=== PATIENT | female | born 1945 | race Caucasian/White ===

== ENCOUNTER 2016-12-27 16:38 | Emergency (ER) | payer MEDICARE, OTHER ==
[~2016-12-27] VITALS: Ht 162.6 cm; Wt 95.8 kg
[~2016-12-27 16:38] MED LIST: ACET-2723 PO; ALLO300T2 PO; ASCO-324 PO; ASPI-557 PO; ASPI-935 PO; FERR325T40 PO; FURO-154 PO; LIDO30CR23 TP; MULT-1114 PO; NITR0.4T SL; PETR3.5O BOTH EYES; POTA10TA10 PO; PRAV40TA3 PO; TRAM50TA4 PO; VERA120C2 PO
[2016-12-27 16:43] VITALS: Ht 162.6 cm; Wt 95.8 kg
--- OUTSIDE RECORDS SUMMARY | 2016-12-27 16:44 | XMS REPORT | Continuity of Care Document ---
Author Author [facility] Organization [facility] Address Unknown Phone Unavailable Support Name Relationship Address Phone QUINN WOODS II, MD Caregiver [address] [place] [address] [address] [place] [phone] Unavailable GARY WU MD Caregiver [address] [place] [address] [place] [address] Unavailable GLORY GOVEA Next Of Kin [address] [place] [address] Insurance Providers Guarantor Vivi Sorensen Address [address] [place] [address] Email [email or web address] Payer [facility] Policy Number [id number] Subscriber's Name SorensenVivi Relationship 18 Self Group Number [id number] Effective Date 13 Payer Medicare Policy Number [id number] Subscriber's Name Sorensen,Vivi Medina Relationship 18 Self Effective Date 11 Advance Directives Directive Response Recorded Date/Time Ordered Resuscitation Status Full Code 09/21/16 9:19am Resuscitation Documents on File No 09/22/16 6:38am DPOA for Healthcare Only No 09/22/16 6:38am Living Will No 09/22/16 6:38am Problems No problem information available. Medications Current Home Medications Medication Dose Units Route Directions Days Qty Instructions Start Date Acetaminophen (Tylenol Extra Strength) 500 Mg Tablet 1-2 Tab Oral Every 6 Hours as needed for Pain 05/20/15 Allopurinol 300 Mg Tablet 1 Tab Oral Daily 09/10/14 Ascorbate Calcium (Vitamin C) 500 Mg Tablet 1 Tab Oral Daily Aspirin (Aspir 81) 81 Mg Tablet. 1 Tab Oral Daily 09/10/14 Aspirin/Caffeine (Tez Back & Body Caplet) 1 Each Tablet 1 Tab Oral Daily as needed for Pain 09/21/16 Ferrous Sulfate (Iron) 325 Mg Tablet 1 Tab Oral 3 Times A Week BEST WITH FOOD. 09/21/16 Furosemide (Lasix) 20 Mg Tablet 1 Tab Oral 3 Times A Week 09/30/ 15 Lidocaine/Prilocaine (Lidocaine-Prilocaine Cream) 30 Gm Cream..g. 1 Applic Topical As Needed as needed for Pain 09/21/16 Mineral Oil/Petrolatum,White (Refresh P.m. Ointment) 3.5 Gm Oint...g. 1 Unit Ophthalmic Bedtime 05/20/15 Multivitamin (Daily Value) 1 Each Tablet 1 Tab Oral Daily Nitroglycerin (Nitrostat) 0.4 Mg Tablet 0.4 Mg Sublingual for Chest Pain 10/27/14 Potassium Chloride (Klor-Con 10) 10 Meq Tablet.er 1 Tab Oral Daily 05/20/15 Pravastatin Sodium 40 Mg Tablet 40 Mg Oral Bedtime Take 1 tablet, by mouth, daily at bedtime. 09/10/14 Tramadol Hcl 50 Mg Tablet 50 Mg Oral Q6h/0300,0900,1500,2100 as needed for Pain Take 1 tablet, by mouth, every 6 hours. 09/21/16 Verapamil Hcl (Verapamil Er) 120 Mg Cap24h.pel 1 Tab Oral Daily 30 10/27/14 Past Home Medications Medication Directions Ordered Status Benazepril/Hydrochlorothiazide (Benazepril-Hctz 20-12.5 Mg Tab) 1 Each Tablet, 1 Tab Oral Daily 09/10/14 Discontinued Social History Social History Problem Response Recorded Date/Time Onset Date Status Reason for Hospitalization COLONSCOPY 09/22/2016 8:36am Not Applicable Not Applicable Chewing Tobacco Status No 09/22/2016 6:35am Not Applicable Not Applicable Hx Substance Use No 09/22/2016 6:35am Not Applicable Not Applicable Hx Alcohol Use No 09/22/2016 6:35am Not Applicable Not Applicable Has the pt used tobacco in the last 12 months No 09/22/2016 6:35am Not Applicable Not Applicable Query Response Start Date Stop Date Smoking Status Former smoker Hospital Discharge Instructions Instructions: Care Instructions: I was in the hospital because (patient own words): COLONOSCOPY Discharge Diet: You may resume your usual diet. Discharge Activity: You may resume your usual activity. Follow Up Appointments: No specific follow-up appointment with Dr. Wu is necessary. You can call his office for any questions or concerns. Pending Lab / Results: Will be notified Patient Instructions: Do not drive, operate machinery, drink alcohol, or sign important papers for 24 hours. Expected Signs/Symptoms: You may have some gas discomfort. Notify Physician If: Contact Dr. Wu if you have a fever over 101 degrees, severe abdominal pain, or severe rectal bleeding. During Business Hours:: During office hours, call Dr. Wu's office at [phone]. After Business Hours:: After hours, please call [facility] at [phone] and have the door operator page Dr. Wu or the covering physician. Pain Management/Treatment: You should not have significant pain following the procedure. Wound/Incision Care: No wound care required. Condition at time of discharge: Good Plan of Care Discharge Date 09/22/16 8:56am Instructions/Education Provided [facility] Surgical Services Prescriptions See Medication Section Functional Status Query Response Date Recorded Ability to complete ADL's impeded by No change September 22, 2016 6:38am Allergies, Adverse Reactions, Alerts Allergen Type Severity Reaction Status Last Updated NKDA Allergy Unknown Active 09/22/16 Immunizations Query Response on File Recorded Date/Time Hx Influenza Vaccination Y 201509/22/16 6:35am Hx Pneumococcal Vaccination Y fall 201409/22/16 6:35am Hx Influenza Vaccination Y 201509/22/16 6:35am Vital Signs Acute Vital Signs Vital Response Date/Time Temperature (Fahrenheit) 97.3 deg F (96.8 - 99.1) 09/22/2016 8:17am Temperature (Calculated Celsius) 36.07276 degrees C (36.0 - 37.3) 09/22/2016 8:17am Temperature Source Oral 09/22/2016 8:17am Pulse Rate (adult) 68 bpm (60 - 100) 09/22/2016 8:47am Respiratory Rate 16 breaths/min (10 - 20) 09/22/2016 8:47am O2 Sat by Pulse Oximetry 92 % (90 - 100) 09/22/2016 8:47am Oxygen Delivery Method Room Air 09/22/2016 8:47am Blood Pressure 108/58 mm Hg 09/22/2016 8:47am Blood Pressure Source Automatic Cuff 09/22/2016 8:47am Height (Feet) 5 feet 09/22/2016 6:12am Height (Inches) 3.00 inches 09/22/2016 6:12am Weight (Kilograms) 94.300 kg 09/22/2016 6:12am Body Mass Index (BMI) 36.8 09/22/2016 6:12am Results No known relevant diagnostic tests, laboratory data and/or discharge summary. Procedures Procedure Status Date Provider(s) Colonoscopy with polypectomy and biopsy Completed 09/22/16 GARY WU MD Encounters Encounter Location Arrival/Admit Date Discharge/Depart Date Attending Provider Departed Surgical [facility] 09/22/16 5:54am 09/22/16 8: 56am GARY WU MD
--- OUTSIDE RECORDS SUMMARY | 2016-12-27 16:44 | XMS REPORT | Continuity of Care Document ---
Author Author [facility] Organization [facility] Address Unknown Phone Unavailable Support Name Relationship Address Phone QUINN WOODS II, MD Caregiver [address] [place] [address] [address] [place] [phone] GARY WU MD Caregiver [address] [place] [address] [place] [phone] VIKASH FAYN Next Of Kin Unknown [phone] Insurance Providers Payer Name Policy Number Subscriber Name Relationship Medicare [id number] Vivi Sorensen 18 Self Other A Insurance [id number] Vivi Sorensen 18 Self Advance Directives Directive Response Recorded Date/Time Ordered Resuscitation Status Full Code 09/10/14 10:36am Resuscitation Documents on File No 09/10/14 9:54am Problems No known problems or medical conditions. Medications Medication Dose Route Sig Days/Qty Instructions Order Date Discontinued Date Status Aspirin 1 Tab PO DAILY 09/10/14 Active Multivitamin 1 Tab PO DAILY 09/10/14 Active [place]-3 Fatty Acids/Fish Oil 2,000 Mg PO DAILY 09/10/14 Active Nystatin/Triamcin 2 Dose TOP NEEDED 09/10/14 Active Naproxen 1 Tab PO TWICE A DAY 09/10/14 Active Allopurinol 1 Tab PO DAILY 09/10/14 Active [Eye Vitamin] 1 Tab PO DAILY 09/10/14 Active Benazepril/Hydrochlorothiazide 1 Tab PO DAILY 09/10/14 Active Pravastatin Sodium 40 Mg PO BEDTIME Take 1 tablet, by mouth, daily at bedtime. 09/10/14 Active [Opti-Epa] 480 Ml PO DAILY 09/10/14 Active Social History Social History Problem Response Recorded Date/Time Chewing Tobacco Status No 09/10/2014 9:45am Hx Substance Use No 09/10/2014 9:45am Hx Alcohol Use No 09/10/2014 9:45am Has the pt used tobacco in the last 12 months No 09/11/2014 8:50am Query Response Start Date Stop Date Smoking Status Former smoker Hospital Discharge Instructions No hospital discharge instructions. Plan of Care No plan of care. Functional Status No functional status results. Allergies, Adverse Reactions, Alerts Allergen Type Severity Reaction Status Last Updated NKDA Allergy Unknown Active 09/10/14 Immunizations Name Given Type Hx Influenza Vaccination Y FALL 2013 Historical Hx Pneumococcal Vaccination Y UNSURE OF DATE Historical Hx Influenza Vaccination Y FALL 2013 Historical Vital Signs Acute Vital Signs Vital Response Date/Time Temperature (Fahrenheit) 98.2 deg F (96.8 - 99.1) Temperature (Calculated Celsius) 36.73084 degrees C (36.0 - 37.3) Temperature Source Temporal Pulse Rate (adult) 75 bpm (60 - 100) Respiratory Rate 16 breaths/min (10 - 20) O2 Sat by Pulse Oximetry 96 % (90 - 100) Oxygen Delivery Method Room Air Blood Pressure 132/63 mm Hg Blood Pressure Source Automatic Cuff Height (Feet) 5 feet Height (Inches) 4.00 inches Weight (Kilograms) 95.800 kg Body Mass Index (BMI) 36.3 Results No known relevant diagnostic tests, laboratory data and/or discharge summary. Procedures Procedure Status Date Provider(s) EGD (esophagogastroduodenoscopy) completed 09/11/14 GARY WU MD Colonoscopy completed 09/11/14 GARY WU MD
--- OUTSIDE RECORDS SUMMARY | 2016-12-27 16:44 | XMS REPORT | Continuity of Care Document ---
Author Author [facility] Organization [facility] Address Unknown Phone Unavailable Support Name Relationship Address Phone CRISTINO RAMOS MD Caregiver [address] [place] [phone] QUINN WOODS II, MD Caregiver [address] [place] [phone] MARIELA GOVEAE Next Of Kin [address] [place] [address] Insurance Providers Payer Name Policy Number Subscriber Name Relationship Medicare [id number] Vivi Sorensen 18 Self Other A Insurance [id number] Vivi Sorensen Self Advance Directives Directive Response Recorded Date/Time Ordered Resuscitation Status Full Code, unverified 10/25/14 10:09am Problems No known problems or medical conditions. Medications Medication Dose Route Sig Days/Qty Instructions Order Date Discontinued Date Status Aspirin 1 Tab PO DAILY 09/10/14 Active Multivitamin 1 Tab PO DAILY 09/10/14 Active [place]-3 Fatty Acids/Fish Oil 2,000 Mg PO DAILY 09/10/14 Active Allopurinol 1 Tab PO DAILY 09/10/14 Active [Eye Vitamin] 1 Tab PO DAILY 09/10/14 Active Benazepril/Hydrochlorothiazide 1 Tab PO DAILY 09/10/14 10/27/14 Discontinued Pravastatin Sodium 40 Mg PO BEDTIME Take 1 tablet, by mouth, daily at bedtime. 09/10/14 Active [Opti-Epa] 480 Ml PO DAILY 09/10/14 Active Omeprazole 20 Mg PO BEFORE BREAKFAST 10/27/14 Active Atenolol 1 Tab PO DAILY 10/27/14 Active Colesevelam HCl 1 Tab PO DAILY 10/27/14 Active Nitroglycerin 0.4 Mg SL For CHEST PAIN 10/27/14 Active Verapamil HCl 1 Tab PO DAILY 30 Qty 10/27/14 Active Benazepril/Hydrochlorothiazide 0.5 Tab PO DAILY 30 Days 10/27/14 Active Social History Social History Problem Response Recorded Date/Time Chewing Tobacco Status No 10/27/2014 7:38am Hx Substance Use No 10/27/2014 7:38am Hx Alcohol Use No 10/27/2014 7:38am Has the pt used tobacco in the last 12 months No 10/27/2014 7:38am Query Response Start Date Stop Date Smoking Status Former smoker Hospital Discharge Instructions No hospital discharge instructions. Plan of Care No plan of care. Functional Status No functional status results. Allergies, Adverse Reactions, Alerts Allergen Type Severity Reaction Status Last Updated NKDA Allergy Unknown Active 10/27/14 Immunizations Name Given Type Hx Influenza Vaccination Y JUN 2014 Historical Hx Pneumococcal Vaccination Y UNSURE OF DATE Historical Hx Influenza Vaccination Y JUN 2014 Historical Vital Signs Acute Vital Signs Vital Response Date/Time Temperature (Fahrenheit) 98.1 deg F (96.8 - 99.1) Temperature (Calculated Celsius) 36.86140 degrees C (36.0 - 37.3) Temperature Source Temporal Pulse Rate (adult) 63 bpm (60 - 100) Respiratory Rate 20 breaths/min (10 - 20) O2 Sat by Pulse Oximetry 98 % (90 - 100) Oxygen Delivery Method Room Air Blood Pressure 143/65 mm Hg Blood Pressure Source Automatic Cuff Height 5 ft 4 in Weight 214 lb Body Mass Index 36.0 kg/m^2 Results Test Source Date Result Interp. Ref. Range Comments Calcium Level October 27, 2014 7:38am 9.5 MG/DL N 8.4-10.2 COMMENT WILL CALL WHEN PT IS HERE Calculated Osmolality October 27, 2014 7:38am 285 MOSM/KG H 261-280 COMMENT WILL CALL WHEN PT IS HERE Glucose Level October 27, 2014 7:38am 121 MG/DL H 65-110 COMMENT WILL CALL WHEN PT IS HERE Glomerular Filtration Rate Calc October 27, 2014 7:38am 45 - COMMENT WILL CALL WHEN PT IS HERE BUN/Creatinine Ratio October 27, 2014 7:38am 17 RATIO N 6-26 COMMENT WILL CALL WHEN PT IS HERE Creatinine October 27, 2014 7:38am 1.2 MG/DL N 0.7-1.2 COMMENT WILL CALL WHEN PT IS HERE Blood Urea Nitrogen October 27, 2014 7:38am 20.0 MG/DL H 7-17 COMMENT WILL CALL WHEN PT IS HERE Anion Gap October 27, 2014 7:38am 12 MEQ/L N 5-15 COMMENT WILL CALL WHEN PT IS HERE Carbon Dioxide Level October 27, 2014 7:38am 27 MEQ/L N 22-30 COMMENT WILL CALL WHEN PT IS HERE Chloride Level October 27, 2014 7:38am 107 MEQ/L N 98-107 COMMENT WILL CALL WHEN PT IS HERE Potassium Level October 27, 2014 7:38am 4.5 MEQ/L N 3.6-5 COMMENT WILL CALL WHEN PT IS HERE Sodium Level October 27, 2014 7:38am 146 MEQ/L H 134-144 COMMENT WILL CALL WHEN PT IS HERE Turbidity October 27, 2014 7:38am < 20 0-20 COMMENT WILL CALL WHEN PT IS HERE Chemistry Specimen Hemolysis October 27, 2014 7:38am < 15 0-25 0-25: No Hemolysis.26-70: Slight Hemolysis - can falsely elevate K and Urine Protein. 71-285: Moderate Hemolysis - can falsely elevate K, Troponin I, CA 19-9, PTH, CSF GLucose, and Urine Protein, and can falsely decrease Phenytoin. 286-999: Gross Hemolysis - can falsely elevate K, Troponin I, CA 19-9, PTH, CSF Glucose, and Urine Protine, and can falsely decrease Phenytoin. Recommend specimen recollection. Icterus Index October 27, 2014 7:38am < 2 0-7 COMMENT WILL CALL WHEN PT IS HERE Immature Granulocyte # (Auto) October 27, 2014 7:38am 0.01 T/MM3 N 0.00- 0.03 COMMENT WILL CALL WHEN PATIENT IS HERE Basophils # (Auto) October 27, 2014 7:38am 0.0 T/MM3 N 0-0.2 COMMENT WILL CALL WHEN PATIENT IS HERE Eosinophils # (Auto) October 27, 2014 7:38am 0.2 T/MM3 N 0-0.5 COMMENT WILL CALL WHEN PATIENT IS HERE Monocytes # (Auto) October 27, 2014 7:38am 0.6 T/MM3 N 0-0.8 COMMENT WILL CALL WHEN PATIENT IS HERE Lymphocytes # (Auto) October 27, 2014 7:38am 2.5 T/MM3 N 1-4.8 COMMENT WILL CALL WHEN PATIENT IS HERE Neutrophils # (Auto) October 27, 2014 7:38am 5.2 T/MM3 N 1.8-7.7 COMMENT WILL CALL WHEN PATIENT IS HERE Immature Granulocyte % (Auto) October 27, 2014 7:38am 0.1 % N 0.0-0.5 COMMENT WILL CALL WHEN PATIENT IS HERE Basophils (%) (Auto) October 27, 2014 7:38am 0.5 % N 0-2 COMMENT WILL CALL WHEN PATIENT IS HERE Eosinophils (%) (Auto) October 27, 2014 7:38am 2.0 % N 0-4 COMMENT WILL CALL WHEN PATIENT IS HERE Monocytes (%) (Auto) October 27, 2014 7:38am 6.9 % N 0-9.0 COMMENT WILL CALL WHEN PATIENT IS HERE Lymphocytes (%) (Auto) October 27, 2014 7:38am 29.6 % N 23-45 COMMENT WILL CALL WHEN PATIENT IS HERE Neutrophils (%) (Auto) October 27, 2014 7:38am 60.9 % N 33-66 COMMENT WILL CALL WHEN PATIENT IS HERE Mean Platelet Volume October 27, 2014 7:38am 10.6 UM3 N 9.4-12.4 COMMENT WILL CALL WHEN PATIENT IS HERE Platelet Count October 27, 2014 7:38am 170 T/MM3 N 130-400 COMMENT WILL CALL WHEN PATIENT IS HERE RDW Standard Deviation October 27, 2014 7:38am 45.9 FL N 36.9-50.2 COMMENT WILL CALL WHEN PATIENT IS HERE Mean Corpuscular Hemoglobin Concent October 27, 2014 7:38am 33.1 GM/DL N 31-37 COMMENT WILL CALL WHEN PATIENT IS HERE Mean Corpuscular Hemoglobin October 27, 2014 7:38am 30.9 UUG N 26-34 COMMENT WILL CALL WHEN PATIENT IS HERE Mean Corpuscular Volume October 27, 2014 7:38am 93.4 UM3 N 80-100 COMMENT WILL CALL WHEN PATIENT IS HERE Hematocrit October 27, 2014 7:38am 36.6 % N 36-46 COMMENT WILL CALL WHEN PATIENT IS HERE Hemoglobin October 27, 2014 7:38am 12.1 GM/DL N 12-16 COMMENT WILL CALL WHEN PATIENT IS HERE Red Blood Count October 27, 2014 7:38am 3.92 M/MM3 L 4.00-5.20 COMMENT WILL CALL WHEN PATIENT IS HERE White Blood Count October 27, 2014 7:38am 8.5 T/MM3 N 4.5-11.0 COMMENT WILL CALL WHEN PATIENT IS HERE Procedures No known history of procedures. Encounters Encounter Location Date/Time Registered [facility] 10/27/14 6:55am
--- NOTE | 2016-12-27 16:49 | NUR ---
PROVIDER Jeremias COWART BESSEMER REGULATOR IN TO SEE PATIENT.
--- OUTSIDE RECORDS SUMMARY | 2016-12-27 16:56 | XMS REPORT | Continuity of Care Document ---
Author Author [facility] Organization [facility] Address Unknown Phone Unavailable Support Name Relationship Address Phone CRISTINO RAMOS MD Caregiver [address] [place] [phone] QUINN WOODS II, MD Caregiver [address] [place] [phone] MARIELA GOVEAE Next Of Kin [address] [place] [address] Insurance Providers Payer Name Policy Number Subscriber Name Relationship Medicare [id number] Vivi Sorensen 18 Self Other A Insurance [id number] Vivi Sorensen Self Advance Directives Directive Response Recorded Date/Time Ordered Resuscitation Status Full Code, unverified 10/25/14 10:09am Problems No known problems or medical conditions. Medications Medication Dose Route Sig Days/Qty Instructions Order Date Discontinued Date Status Aspirin 1 Tab PO DAILY 09/10/14 Active Multivitamin 1 Tab PO DAILY 09/10/14 Active [place]-3 Fatty Acids/Fish Oil 2,000 Mg PO DAILY [...] F (96.8 - 99.1) Temperature (Calculated Celsius) 36.56232 degrees C (36.0 - 37.3) Temperature Source [...] of procedures. Encounters Encounter Location Date/Time Registered [facility] 10/27/14 6:55am
--- OUTSIDE RECORDS SUMMARY | 2016-12-27 16:56 | XMS REPORT | Continuity of Care Document ---
Author Author [facility] Organization [facility] Address Unknown Phone Unavailable Support Name Relationship Address Phone QUINN WOODS II, MD Caregiver [address] [place] [address] [address] [place] [phone] GARY WU MD Caregiver [address] [place] [address] [place] [phone] VIKASH FAYN Next Of Kin Unknown [phone] Insurance Providers Payer Name Policy Number Subscriber Name Relationship Medicare [id number] Vivi Sorensen 18 Self Other A Insurance [id number] Vivi Sorensen 18 Self Advance Directives Directive Response Recorded Date/Time Ordered Resuscitation Status Full Code 09/10/14 10:36am Resuscitation Documents on File No 09/10/14 9:54am Problems No known problems or medical conditions. Medications Medication Dose Route Sig Days/Qty Instructions Order Date Discontinued Date Status Aspirin 1 Tab PO DAILY 09/10/14 Active Multivitamin 1 Tab PO DAILY 09/10/14 Active [place]-3 Fatty Acids/Fish Oil 2,000 Mg PO DAILY [...] F (96.8 - 99.1) Temperature (Calculated Celsius) 36.89286 degrees C (36.0 - 37.3) Temperature Source [...]
--- NOTE | 2016-12-27 16:58 | ERPDOC ---
Departure Disposition Decision Date: December 27, 2016 Disposition Decision Time: 16:57 Disposition: 01 DISCHARGED HOME, SELF-CARE Impression Impression Impression: Primary Impression: Laceration of hand Encounter type: initial encounter Foreign body presence: without foreign body Laterality: left Qualified Codes: S61.412A - Laceration without foreign body of left hand, initial encounter Severity: Moderate Condition: Stable Seen By: Mid-level only Referrals: QUINN WOODS II, MD (Family) Patient Instructions: Laceration (ED) Problems/Meds/Labs Reviewed?: Yes Medications reviewed and manag: Yes Additional Instructions: The dermabond will come off on its own. Do no apply an petroleum based ointments on the wound as this is the antidote for the dermabond. If any further concerns then follow up with PCP. Follow up care ordered?: Yes Mental Status: Alert HPI - Skin General General Chief Complaint: Laceration Stated Complaint: HAND LACERATION Time Seen by Provider: 16:46 Source: patient Exam Limitations: no limitations HPI - Skin General Initial Comments Her shredder at home was not working so she was using a knife and cut her left hand with the knife. She has a small laceration but it was bleeding quite a bit at home. Unknown last Tetanus vaccination. She does take a daily ASA. Occurred At: home Onset: Rapid Duration: 1 hr Severity: moderate Location: extremities (left hand) Possible Cause: other (cut with knife) Associated Symptoms: denies symptoms Hx of Similar Symptoms: No Allergies: Coded Allergies: NKDA (Verified Allergy, Unknown, 09/22/16) Past History Past Medical History Metabolic: gout, hypercholesterolemia Respiratory: other (bronchitis) Vaccines Hx Influenza Vaccination: Yes (2015) Hx Pneumococcal Vaccination: Yes (FALL 2014) Social History Does patient use chewing tobac: No # of Packs/Tins per Day: 2 # of Years: 36 Second Hand Exposure: No Substance Use Type: does not use Review of Systems Musculoskeletal General: DENIES: joint pain, joint swelling, pain, tenderness Integumentary Skin: other (laceration on the back of the left hand), DENIES: color change, rash Physical Exam General General Nourishment: well nourished, well developed, appears stated age, no acute distress General Body Habitus: well groomed Vitals and Pain First Documented Vital Signs Date Time Temp Pulse Resp B/P Pulse Ox O2 Delivery O2 Flow Rate FiO2 12/27/16 16:43 98.0 64 16 153/81 95 Room Air Weight: Kilograms: Height (feet): 5 Height (inches): 3.00 Triage Pain Scale: RN VS reviewed by Provider: Yes Normal Exams: Lymphatic: No lymphadenopathy, or lymphedema noted Musculoskeletal: No tenderness, or deformity noted, good range of motion, all extremities Integumentary: No rashes, hives, or bruising noted, hair and nails, without abnormality Neurologic: Patient is alert, and oriented Psychiatric: Patient exhibits, appropriate attention, emotion and affect Integumentary (brief) Integumentary Brief: FOUND: other (Small 1 cm laceration on the left hand on the webbing between the finger and thumb, no active bleeding, no large gaping) Differential Diagnoses Considering: Laceration, Other (tendon injury, FB in skin) Progress Progress Progress Will update her tetanus today. Dermabond applied. Did review dermabond care at this time. If any further concerns then return to Er. RICARDO COWART APRN December 27, 2016 16:58
[2016-12-27] MEDS ORDERED: TETANUS + DIPHTHERIA (Td)(Adult) 0.5ml SYRINGE IM ONE (17:00)
[2016-12-27] MEDS ORDERED: ASCO10007 PO (17:08)
[2016-12-27] MEDS ORDERED: [UNRECOGNIZED DRUG - CODE] PO (17:13)
[2016-12-27] MEDS ORDERED: eye promise PO (17:15)
[2016-12-27 17:20] VITALS: BP 153/81; PULSE 64; RESP 16; TEMP 98; O2SAT 95
== END 2016-12-27 17:20 | disposition home or self-care (01) ==
LOC: ED 16:38
DX: S61.412A Laceration without foreign body of left hand, initial encounter (principal); W26.0XXA Contact with knife, initial encounter; Y93.89 Activity, other specified; Y92.009 Unspecified place in unspecified non-institutional (private) residence as the place of occurrence of the external cause; Y99.8 Other external cause status
CPT/HCPCS: 90471; 90714; 96372

== ENCOUNTER 2017-01-17 07:54 | Inpatient (IN) ==
[2017-01-19] MEDS ORDERED: NITROGLYCERIN 0.4 MG SUBLINGUAL TABLET SL PRN (05:00)
[2017-01-19] MEDS ORDERED: TRAMADOL 50 MG TABLET PO PRN (05:00)
[2017-01-19] MEDS ORDERED: SALINE FLUSH 10ml SYRINGE IVF PRN (05:00)
[2017-01-19] MEDS ORDERED: FERROUS SULFATE 324 MG TABLET PO SCH (08:00)
[2017-01-19] MEDS ORDERED: FUROSEMIDE 20 MG TABLET PO SCH (09:00)
[2017-01-19] MEDS ORDERED: VERAPAMIL 120 MG PO SCH (09:00)
[2017-01-19] MEDS ORDERED: ALLOPURINOL 300 MG TABLET PO SCH (09:00)
[2017-01-19] MEDS ORDERED: ASPIRIN *EC* 81 MG TABLET PO SCH (09:00)
[2017-01-19] MEDS ORDERED: MEXILETINE 150 MG CAPSULE PO SCH (09:00)
--- NOTE | 2017-01-19 09:44 | Discharge Summary ---
Discharge Information Date of admission: 01/18/17 11:26 Anticipated date of discharge: 01/19/17 Attending Physician: Bereket Moon MD - Discharge Diagnosis (1) Ventricular premature depolarization Status: Acute - Laboratory Labs: 01/17/17 08:05 01/19/17 04:38 Laboratory Results - last 48 hr 01/17/17 01/17/17 01/18/17 08:05 08:05 04:26 Turbidity < 20 < 20 Sodium 147 H 144 Potassium 3.8 3.7 Chloride 108 H 107 Carbon Dioxide 24 26 Anion Gap 15 11 BUN 23.0 H 22.0 H Creatinine 1.1 1.1 GFR Calculation 49 49 BUN/Creatinine Ratio 21 20 Glucose 135 H 108 Calculated Osmolality 288 H 281 H Calcium 9.8 9.3 Magnesium 1.9 1.9 Total Bilirubin 0.60 Icterus Index < 2 < 2 AST 24 ALT 31 Alkaline Phosphatase 55 Total Protein 7.6 Albumin 4.4 Globulin 3.2 Albumin/Globulin Ratio 1.4 TSH 2.89 Free T4 1.03 Specimen Hemolysis < 15 < 15 01/19/17 04:38 Turbidity 20 Sodium 143 Potassium 3.9 Chloride 105 Carbon Dioxide 26 Anion Gap 12 BUN 26.0 H Creatinine 1.2 GFR Calculation 44 BUN/Creatinine Ratio 22 Glucose 110 Calculated Osmolality 281 H Calcium 9.3 Magnesium 1.9 Total Bilirubin Icterus Index 2 AST ALT Alkaline Phosphatase Total Protein Albumin Globulin Albumin/Globulin Ratio TSH Free T4 Specimen Hemolysis 15 History of Present Illness HPI: 01/19/17 09:59 Ania is a 71 year old female who is well known to Dr. Moon with a history of CAD, HTN, HLD and PVCs who had a recent Holter which showed several irregular beats. She was admitted to observation on 01/17/17 for antiarrhythmic therapy on Flecainide 50mg PO BID. She was monitored on telemetry with a repeat EKG on 01/18. Hospital Course Hospital course: Ms. Dean is a 71 year old female who was admitted to observation on 01/17/17 for antiarrhythmic therapy on Flecainide 50mg PO BID. She was monitored on telemetry with a repeat EKG on 01/18/17. Her frequency of PVCs actually increased due to the Flecainide. She was made an inpatient and Flecainide was stopped and she was started on Mexiletine 150mg TID. Her PVCs are less frequent and she is being discharged in good and stable condition to her home in the care of herself on Mexiletine 150mg PO TID with RX sent to [facility], with an appointment for another Holter on 01/24/17t 3:30 and follow up with Dr. Ordonez on 02/15/17 at 9:50. DVT Prophylaxis: Lovenox (started 01/18/17) Discharge Plan - Med Rec/Dispo Prescriptions: New Mexiletine [Mexitil] 150 mg PO Q8HR #30 cap No Action Allopurinol 300 mg PO DAILY #0 Nitroglycerin [Nitrostat] 0.4 mg SL Q5MIN PRN #0 PRN Reason: CHEST PAIN Ferrous Sulfate [Iron] 325 mg PO DAILY #0 Tramadol HCl 50 mg PO Q6HR PRN #0 PRN Reason: PAIN Verapamil HCl [Verapamil ER] 240 mg PO DAILY #0 eye promise 1 tab PO DAILY #0 Aspirin [Aspir 81] 81 mg PO DAILY #0 Pravastatin Sodium 40 mg PO HS #0 Mineral Oil/Petrolatum,White [Refresh P.m. Ointment] 1 applic BOTH EYES HS # 0 Potassium Chloride [Klor-Con 10] 10 meq PO DAILY #0 Furosemide [Lasix] 20 mg PO DAILY #0 Aspirin/Caffeine [Tez Back & Body Caplet] 1 tab PO DAILY PRN #0 PRN Reason: PAIN Ascorbic Acid [Vitamin C] 1,000 mg PO DAILY #0 - Disposition 01 Discharged Home, Self-Care
[2017-01-19] MEDS ORDERED: PRAVASTATIN 40 MG TABLET PO SCH (22:00)
== END 2017-01-19 10:50 | disposition home or self-care (01) | DRG 310 ==
LOC: MED 07:54
PROVIDERS: ADMIT Internal Medicine Cardiovascular Disease; ATTEND Internal Medicine Cardiovascular Disease

== ENCOUNTER 2017-03-01 08:13 | Observation (INO) ==
[2017-03-01 08:37] VITALS: BP 144/70; RESP 18; O2SAT 94
[2017-03-01 08:47] VITALS: BMI 35.2
[2017-03-01] MEDS ORDERED: AMIODARONE 200 MG TABLET PO SCH ×3 (09:00→10:31)
[2017-03-01] MEDS ORDERED: NITROGLYCERIN 0.4 MG SUBLINGUAL TABLET SL PRN (10:32)
[2017-03-01] MEDS ORDERED: TRAMADOL 50 MG TABLET PO PRN (10:32)
--- NOTE | 2017-03-01 11:22 | Cardiology History & Physical ---
History of Present Illness Chief complaint: PVCs HPI: Ania is a 71 year old female who is well known to Dr. Moon with a history of Ventricular premature depolarization, CAD, HTN and HLD. She was in [facility] on for anti-arrhythmic therapy, started on Mexiletine 150mg po TID. She had a follow up Holter monitor on 01/24/17 which showed SR, SB, ST, HR 51-120s, occasional PACs, Occasional to frequent PVCs. She was seen by Dr. Moon in the clinic on 02/15/17 and schedule for anti-arrhythmic therapy to start Amiodarone. She is admitted today to observation status for Anti-arrhythmic therapy with Amiodarone, continuous cafeteria monitor and repeat EKG tomorrow. Review of Systems - Constitutional Constitutional: Absent: chills, fatigue, fever(s), weakness - EENMT Eyes: Absent: change in vision Balance: Absent: vertigo Mouth/Throat: Absent: sore throat - Cardiovascular Cardiovascular: Absent: chest pain, palpitations, syncope, dyspnea on exertion, orthopnea, edema, heart murmur Vascular: Absent: pedal edema - Respiratory Respiratory: Absent: cough, dyspnea - Gastrointestinal Gastrointestinal: Absent: abdominal pain, constipation, nausea, vomiting - Genitourinary Genitourinary: Absent: dysuria - Neurological Neurological: Absent: dizziness - Endocrine Endocrine: Absent: palpitations PFSH Patient Stated Medical History Cardiac Arrhythmia Yes Hypertension Yes hyperlipidemia Yes Diabetes Mellitus Type 2 Yes: NO MEDS/DOESN'T CHECK SUGARS Gout Yes Surgical History: Colonoscopy. Cataract removal Family History: No FM of CAD, CHF, AFib, DM - Social History Smoking status: Former smoker packs per day: 2 Packs-years: 35 Substance use type: does not use Alcohol intake frequency: does not drink Current occupational status: retired Current residence: Apartment/Private Home Medications Home Medications Medication Instructions Recorded Confirmed Type Allopurinol 300 mg PO DAILY #0 09/10/14 03/01/17 History Aspirin [Aspir 81] 81 mg PO DAILY #0 09/10/14 03/01/17 History Pravastatin Sodium 40 mg PO HS #0 09/10/14 03/01/17 History Nitroglycerin [Nitrostat] 0.4 mg SL Q5MIN PRN #0 10/27/14 03/01/17 History Furosemide [Lasix] 20 mg PO DAILY #0 05/20/15 03/01/17 History Potassium Chloride [Klor-Con 10] 10 meq PO DAILY #0 05/20/15 03/01/17 History Ferrous Sulfate [Iron] 325 mg PO DAILY #0 09/21/16 03/01/17 History Tramadol HCl 50 mg PO Q6HR PRN #0 09/21/16 03/01/17 History Ascorbic Acid [Vitamin C] 1,000 mg PO DAILY #0 12/27/16 03/01/17 History Verapamil HCl [Verapamil ER] 240 mg PO DAILY #0 12/27/16 03/01/17 History eye promise 1 tab PO DAILY #0 12/27/16 03/01/17 History Allergies Allergy/AdvReac Type Severity Reaction Status Date / Time No Known Allergies Allergy Verified 01/18/17 21:54 Exam Vital signs: Pulse Rate 68 03/01/17 08:32 Respiratory Rate 18 03/01/17 08:35 Blood Pressure 144/70 H 03/01/17 08:35 Pulse Oximetry 94 03/01/17 08:35 Oxygen Delivery Method Room Air - Routine Neck Exam Absent: JVD, carotid bruit - Routine Cardiovascular Exam Present: no murmur - Routine Extremities Exam Present: no edema Results 03/01/17 08:56 03/01/17 08:56 Cardiac Enzymes 03/01/17 Range/Units 08:56 AST 25 (14-36) U/L CBC 03/01/17 Range/Units 08:56 WBC 7.7 (4.5-11.0) T/MM3 RBC 4.37 (4.00-5.20) M/MM3 Hgb 13.3 (12-16) GM/DL Hct 40.2 (36-46) % Plt Count 157 (130-400) T/MM3 Neut # 4.8 (1.8-7.7) T/MM3 Lymph # 2.2 (1-4.8) T/MM3 [place] # 0.5 (0-0.8) T/MM3 Eos # 0.2 (0-0.5) T/MM3 Baso # 0.0 (0-0.2) T/MM3 Comprehensive Metabolic Panel 03/01/17 Range/Units 08:56 Sodium 146 H (134-144) MEQ/L Potassium 3.5 L (3.6-5) MEQ/L Chloride 108 H (98-107) MEQ/L Carbon Dioxide 25 (22-30) MEQ/L BUN 23.0 H (7-17) MG/DL Creatinine 1.2 (0.7-1.2) MG/DL Glucose 114 H (65-110) MG/DL Calcium 9.4 (8.4-10.2) MG/DL AST 25 (14-36) U/L ALT 35 (9-52) U/L Alkaline Phosphatase 48 (38-126) U/L Total Protein 7.1 (6.3-8.2) G/DL Albumin 4.2 (3.5-5.0) G/DL Intake and Output 02/28/17 03/01/17 03/01/17 22:59 06:59 14:59 Other: # Voids 1 Weight 205 lb 7.533 oz Patient Weight 03/02/17 06:59 Weight 205 lb 7.533 oz Laboratory Results - last 48 hr 03/01/17 03/01/17 08:56 08:56 WBC 7.7 RBC 4.37 Hgb 13.3 Hct 40.2 MCV 92.0 MCH 30.4 MCHC 33.1 RDW Std Deviation 44.5 Plt Count 157 MPV 11.2 Immature Gran % (Auto) 0.1 Neut % (Auto) 62.0 Lymph % (Auto) 28.1 [place] % (Auto) 7.0 Eos % (Auto) 2.5 Baso % (Auto) 0.3 Neut # 4.8 Lymph # 2.2 [place] # 0.5 Eos # 0.2 Baso # 0.0 Abs Immat Gran (auto) 0.01 Turbidity < 20 Sodium 146 H Potassium 3.5 L Chloride 108 H Carbon Dioxide 25 Anion Gap 13 BUN 23.0 H Creatinine 1.2 GFR Calculation 44 BUN/Creatinine Ratio 19 Glucose 114 H Calculated Osmolality 286 H Calcium 9.4 Magnesium 1.7 Total Bilirubin 0.60 Icterus Index < 2 AST 25 ALT 35 Alkaline Phosphatase 48 Total Protein 7.1 Albumin 4.2 Globulin 2.9 Albumin/Globulin Ratio 1.4 TSH 2.81 Specimen Hemolysis < 15 Hospital Course This is a general summary of the patient's hospital course. For more details refer to the complete medical record. Assessment and Plan (1) Ventricular premature depolarization Status: Acute She was in [facility] on 01/17/17 for anti-arrhythmic therapy, started on Mexiletine 150mg po TID. She had a follow up Holter monitor on 01/24/17 which showed SR, SB, ST, HR 51-120s, occasional PACs, Occasional to frequent PVCs. She was seen by Dr. Moon in the clinic on 02/15/17 and schedule for anti-arrhythmic therapy to start Amiodarone due to cost of Mexiletine. However, patient is concerned about side effects of Amiodarone, particularly the effects it can have on the Liver and has decided to stay on Mexiletine at this time. (2) Atherosclerotic heart disease of [place] coronary artery without angina pectoris Status: Chronic Continue current therapy with routine monitoring (3) Essential (primary) hypertension Status: Chronic Continue current therapy with routine monitoring (4) Mixed hyperlipidemia Status: Chronic Patient takes Pravastatin, PCP manages - Attestation Attestation Narrative: 03/08/17 11:34 Recommendation After examining the patient I agree with the above assessment. I am involved in the formulation of the patient's plan of care. Sepsis Assessment - Evaluation Sepsis screening result: No Definite Risk
[2017-03-01 13:17] VITALS: PULSE 69
--- NOTE | 2017-03-01 14:48 | Discharge Instructions ---
<Elizabeth Kennedy - Last Filed: 03/01/17 15:04> Discharge Plan - Med Rec/Dispo Referrals/Follow Up: Bereket Moon MD [Physician] - 03/14/17 1:30 pm [email or web address] Instructions: Mexiletine (By mouth) Additional Instructions: Next Holter monitor pick up and delivery driver on 03/14/17 at 1:30pm. Follow up with Dr. Moon on 03/21/17 at 10:50. Continue Mexiletine 150mg by mouth three times a day. Prescriptions: Continue Allopurinol 300 mg PO DAILY #0 Nitroglycerin [Nitrostat] 0.4 mg SL Q5MIN PRN #0 PRN Reason: CHEST PAIN Ferrous Sulfate [Iron] 325 mg PO DAILY #0 Tramadol HCl 50 mg PO Q6HR PRN #0 PRN Reason: PAIN Verapamil HCl [Verapamil ER] 240 mg PO DAILY #0 eye promise 1 tab PO DAILY #0 Aspirin [Aspir 81] 81 mg PO DAILY #0 Pravastatin Sodium 40 mg PO HS #0 Potassium Chloride [Klor-Con 10] 10 meq PO DAILY #0 Furosemide [Lasix] 20 mg PO DAILY #0 Ascorbic Acid [Vitamin C] 1,000 mg PO DAILY #0 Mexiletine HCl 150 mg PO TID #270 capsule - Disposition 01 Discharged Home, Self-Care <Bereket Moon - Last Filed: 03/08/17 11:36> Discharge Plan - Med Rec/Dispo - Attestation Attestation Narrative: 03/08/17 11:35 Recommendation After examining the patient I agree with the above assessment. I am involved in the formulation of the patient's plan of care.
[2017-03-01] MEDS ORDERED: PRAVASTATIN 40 MG TABLET PO SCH (22:00)
[2017-03-02] MEDS ORDERED: FERROUS SULFATE 324 MG TABLET PO SCH (08:00)
[2017-03-02] MEDS ORDERED: Verapamil SR 120 MG TABLET (12Hr) PO SCH (09:00)
[2017-03-02] MEDS ORDERED: ASCORBIC ACID 500 MG TABLET PO SCH (09:00)
[2017-03-02] MEDS ORDERED: ALLOPURINOL 300 MG TABLET PO SCH (09:00)
[2017-03-02] MEDS ORDERED: ASPIRIN *EC* 81 MG TABLET PO SCH (09:00)
[2017-03-02] MEDS ORDERED: FUROSEMIDE 20 MG TABLET PO SCH (09:00)
[2017-03-11] MEDS ORDERED: AMIODARONE 200 MG TABLET PO SCH (09:00)
== END 2017-03-01 17:10 | disposition home or self-care (01) ==
LOC: SRG
PROVIDERS: ADMIT Internal Medicine Cardiovascular Disease; ATTEND Internal Medicine Cardiovascular Disease